=== PATIENT | male | born 1940 | race Caucasian/White ===

== ENCOUNTER 2018-05-09 15:50 | Inpatient (IN) ==
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
[2018-05-09 16:49] LABS: Baso # (Auto) 0.1 th/mm3 (0.0-0.2); Baso % (Auto) 0.7 % (0.0-2.0); Eos # (Auto) 0.6 th/mm3 (0.0-0.4); Eos % (Auto) 5.3 % (0.0-4.0); Hematocrit 50.6 % (39.0-51.0); Hemoglobin 17.7 gm/dL (13.0-17.0); Lymph # (Auto) 4.2 th/mm3 (1.0-4.8); Lymph % (Auto) 39.1 % (9.0-44.0); Mean Corpuscular HGB Conc 34.9 % (32.0-36.0); Mean Corpuscular Hemoglobin 32.9 pg (27.0-34.0); Mean Corpuscular Volume 94.3 fL (80.0-100.0); Mean Platelet Volume 9.1 fL (7.0-11.0); Mono # (Auto) 1.1 th/mm3 (0.0-0.9); Mono % (Auto) 10.7 % (0.0-8.0); Neut # (Auto) 4.7 th/mm3 (1.8-7.7); Neut % (Auto) 44.2 % (16.0-70.0); Platelet Count 153 th/mm3 (150-450); Red Blood Count 5.37 mil/mm3 (4.50-5.90); Red Cell Distribution Width 13.9 % (11.6-17.2); White Blood Count 10.7 th/mm3 (4.0-11.0)
[2018-05-09 17:00] LABS: INR 1.9 Ratio
[2018-05-09 17:06] LABS: Anion Gap 7 meq/L (5-15); Aspartate Aminotransferase 31 U/L (15-37); Blood Urea Nitrogen 16 mg/dL (7-18); Calcium 8.9 mg/dL (8.5-10.1); Carbon Dioxide 23.2 meq/L (21.0-32.0); Chloride 111 meq/L (98-107); Glomerular Filtration Rate 53 mL/min (>89); Glucose,Random 135 mg/dL (74-106); Magnesium 1.7 mg/dL (1.5-2.5); Sodium 141 meq/L (136-145)
[2018-05-09 17:17] LABS: Alanine Aminotransferase 44 U/L (12-78); Alkaline Phosphatase 85 U/L (45-117); Total Protein 7.9 g/dL (6.4-8.2)
[2018-05-09 17:35] LABS: Amphetamine Screen,Urine Neg (Neg); Barbiturate Screen,Urine Neg (Neg); Cannabinoid Screen,Urine Neg (Neg); Cocaine Screen,Urine Neg (Neg)
[2018-05-09 17:41] LABS: Opiate Screen,Urine Neg (Neg)
[2018-05-09] MEDS ORDERED: Gabapentin 300 MG Capsule PO ONE (19:59)
[2018-05-09] MEDS ORDERED: Lisinopril 20 MG Tablet PO ONE (19:59)
[2018-05-09] MEDS ORDERED: Acetaminophen 500 MG Tablet PO ONE (19:59)
[2018-05-09] MEDS ORDERED: Zolpidem Tartrate 5 MG Tablet PO ONE (19:59)
[2018-05-10] MEDS ORDERED: Haloperidol Inj 5 MG/ML Ampul IM ONE (10:18)
[2018-05-10] MEDS ORDERED: Haloperidol Inj 5 MG/ML Ampul ONE (10:20)
[2018-05-10] MEDS ORDERED: Aluminum/Magnesium/Simethacone Susp 30 ML UDC PO PRN (12:22)
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
[2018-05-10] MEDS: Gabapentin 300 MG Capsule PO SCH (17:51)
[2018-05-10] MEDS: QUEtiapine 25 MG Tablet PO SCH (21:03)
[2018-05-11 07:48] LABS: Calcium 8.8 mg/dL (8.5-10.1); Carbon Dioxide 26.4 meq/L (21.0-32.0); Potassium 3.7 meq/L (3.5-5.1)
[2018-05-11 07:53] LABS: Chol/HDL Ratio 3.89 Ratio; HDL Cholesterol 41.3 mg/dL (40.0-60.0)
[2018-05-11] MEDS ORDERED: Zolpidem Tartrate 5 MG Tablet PO SCH (09:00)
[2018-05-11] MEDS ORDERED: DONEPEZIL 10 MG PO SCH (09:00)
[2018-05-11] MEDS ORDERED: CITALOPRAM 40 MG PO SCH (09:00)
[2018-05-11] MEDS: Gabapentin 300 MG Capsule PO SCH ×3 (09:31→17:53)
[2018-05-11] MEDS: Lisinopril 5 MG Tablet PO SCH (09:32)
[2018-05-11] MEDS: Digoxin 125 MCG Tablet PO SCH (09:33)
[2018-05-11] MEDS ORDERED: Warfarin Consult Pharmacy OTHER PRN (09:47)
[2018-05-11 12:43] LABS: INR 1.5 Ratio; Prothrombin Time 15.6 sec (9.8-11.6)
[2018-05-11] MEDS ORDERED: Digoxin 250 MCG Tablet PO ONE ×2 (14:37→20:37)
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
[2018-05-11 16:25] LABS: Hemoglobin A1c 5.5 % (4.3-6.0)
[2018-05-11] MEDS: QUEtiapine 25 MG Tablet PO SCH (21:36)
[2018-05-12] MEDS: Digoxin 125 MCG Tablet PO SCH (08:07)
[2018-05-12] MEDS: Lisinopril 5 MG Tablet PO SCH (08:07)
[2018-05-12] MEDS: Gabapentin 300 MG Capsule PO SCH ×3 (08:07→17:32)
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
[2018-05-12 12:11] LABS: INR 1.7 Ratio; Prothrombin Time 16.8 sec (9.8-11.6)
[2018-05-12 12:25] LABS: Calcium 9.1 mg/dL (8.5-10.1); Carbon Dioxide 26.1 meq/L (21.0-32.0); Magnesium 2.2 mg/dL (1.5-2.5); Potassium 4.1 meq/L (3.5-5.1)
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
[2018-05-12] MEDS: QUEtiapine 25 MG Tablet PO SCH (20:37)
--- NOTE | 2018-05-13 06:39 | ECG ---
Date Performed: 05/11/2018 Time Performed: 14:01:55 PTAGE: 77 years EKG: ATRIAL FIBRILLATION WITH RAPID VENTRICULAR RESPONSE ABNORMAL RHYTHM ECG NO PREVIOUS TRACING DOCTOR: Griffin Oropeza Interpretating Date/Time 05/13/2018 06:38:45
[2018-05-13] MEDS: Gabapentin 300 MG Capsule PO SCH ×3 (08:15→17:22)
[2018-05-13] MEDS: Digoxin 125 MCG Tablet PO SCH (08:15)
[2018-05-13 08:21] LABS: INR 1.8 Ratio; Prothrombin Time 18.7 sec (9.8-11.6)
--- NOTE | 2018-05-13 09:12 | P.PNIM ---
Subjective Interval history: Follow-up visit for Alejandro alberto anticoagulated on Coumadin. Patient seen and examined sitting up in bed with nurse at bedside. Reports physician is trying different medications to assist with sleep at bedtime, received Seroquel overnight. Denies any fevers, chills, nausea, vomiting, diarrhea, cough, shortness of breath or chest pain. Discussed with patient discontinuing lisinopril as he is normotensive off of antihypertensives, verbalized understanding. Physical Exam Vital signs: Vital Signs 05/12/18 17:48 05/13/18 06:00 Temperature 97.5 F L 97.7 F Pulse Rate 66 61 Respiratory Rate 16 15 Blood Pressure 116/59 L Pulse Oximetry 93 L Intake & Output 05/12/18 05/13/18 05/13/18 18:59 06:59 18:59 Intake Total 1080 / 1080 Balance 1080 / 1080 Intake: Oral 1080 / 1080 Other: # Voids 2 Date of Last Bowel Movement 05/12/18 Narrative: GENERAL: Well-developed and well-nourished in no distress SKIN: Warm and dry. CARDIOVASCULAR: Irregularly irregular RESPIRATORY: No accessory muscle use. Clear to auscultation. Breath sounds equal bilaterally. GASTROINTESTINAL: Abdomen soft, non-tender, nondistended. MUSCULOSKELETAL: Extremities without clubbing, cyanosis, or edema. NEUROLOGICAL: Awake and alert. No obvious cranial nerve deficits. Motor grossly within normal limits. Normal speech. PSYCHIATRIC: Appropriate mood and affect; insight and judgment normal. Results Labs CBC & Chem 7: 05/09/18 16:26 05/12/18 11:35 Assessment and Plan (1) Dementia with behavioral disturbance: Code(s): F03.91 - Unspecified dementia with behavioral disturbance Status: Acute Plan 77-year-old male who has been placed under [place] act secondary to violent behavior. Patient has history of dementia and schizophrenia. Consultation has been requested by his attending to evaluate hypertension, hyperlipidemia and manage Coumadin. Schizophrenia-treatment plan per psychiatry Aubree -Continue anticoagulation with Coumadin, pharmacy consulted to assist with dosing. -INR 1.8, continue daily INR's - Loading dose of Digoxin 05/11, rate controlled, continue Digoxin 125cmg daily Hypertension, normotensive -Continue to hold lisinopril, BP stable, discussed discontinuing medication with patient. Hyperlipidemia-LDL 89, controlled Hx colon cancer s/p chemotherapy with side effects of neuropathy -Continue Gabapentin DVT prophylaxis-Coumadin Code Status: Full code Discussed Condition With: Patient and nurse Progress Note: Quality VTE Deep Vein Thrombosis/Pulmonary Embolism Present on Admission: No _ (1) Dementia with behavioral disturbance Qualifiers: Dementia type: Alzheimer's disease onset:
--- NOTE | 2018-05-13 14:16 | P.PNPSY ---
Subjective Chief Complaint: Involuntary hospitalization for violent behavior Remarks: Patient seen for follow-up, chart reviewed. Discussion with nursing staff reported that patient no behavioral disturbances, pleasant with staff, confused at times but isolative, showered, tolerating medications. Patient was found lying in hospital bed noted B, cooperative. Patient state he is feeling " pretty good" stating his mood has been good with adequate appetite, no perceptual disturbances. Patient states that his sleep was somewhat disturbed last evening but in general feels rested. Patient stated that he is looking forward to meeting together with provider and had in regards to discharge plan. Treatment team met with patient's and his daughter with which she expressed adamantly not feeling safe having patient return home despite being updated with patient's recent behavior here on the unit which patient has been cooperative pleasant compliant with medications with no aggressive behavior or agitation. She continues to refuse to consider patient returning home at this time states she does not feel safe due to his history of aggressive behavior and refused to meet with patient today. Discussion of patient being referred to an assisted living facility was reviewed with her and that it would require his income to pay for this referral which she was reluctant to. Review of Systems All other systems reviewed negative except as stated in HPI Mental Status Examination Appearance: Appropriate Consciousness: Alert Orientation: Person, Place, Date/Time Motor Activity: Normal gait Speech: Unremarkable Language: Adequate Fund of Knowledge: Inadequate Attention and Concentration: Easily distracted Memory: Impaired Mood: Appropriate Affect: Appropriate Thought Process & Associations: Intact, Linear, Other ([place]) Thought Content: Preoccupations (With meeting with ) Hallucination Type: None Delusion Type: None Suicidal Ideation: No Suicidal Plan: No Suicidal Intention: No Homicidal Ideation: No Homicidal Plan: No Homicidal Intention: No Insight: Fair Judgment: Impulsive Assessment and Plan - Assessment (1) Dementia with behavioral disturbance Code(s): F03.91 - Unspecified dementia with behavioral disturbance Status: Acute - Plan Plan: Patient this time noted to have good behavioral control, noted with stable mood no episodes of agitation or aggression, compliant with medication. We will continue current treatment. We will continue to monitor mood and behavior. At this time treatment team actively looking for assisted living facility where patient can be referred to us patient does not want patient return home and states she does not feel safe having him return there. Continue discharge planning. Justification for Continued Inpatient Stay: At risk of further decompensation at lower level care.
[2018-05-13] MEDS: QUEtiapine 25 MG Tablet PO SCH (21:10)
[2018-05-14] MEDS: Gabapentin 300 MG Capsule PO SCH ×3 (09:36→18:22)
[2018-05-14 09:43] LABS: INR 1.9 Ratio; Prothrombin Time 19.6 sec (9.8-11.6)
[2018-05-14] MEDS: Digoxin 125 MCG Tablet PO SCH (11:42)
--- NOTE | 2018-05-14 14:18 | P.PNPSY ---
Subjective Chief Complaint: Involuntary hospitalization for violent behavior Remarks: Patient seen for follow-up, chart reviewed. Discussion with nursing staff reported that patient no behavioral disturbances, compliant with medications. Patient found sitting in hospital bed noted B, cooperative. Patient state he worked with physical therapy today, reports sleeping "not bad" last night, adequate appetite and his mood is "pretty good". Patient does deny any SI, HI, AH or delusions. Patient continues to state he has no intention of hurting his and would like to be able to work things out with her and stated he is concerned about her his daughter as well. Discussion of meeting yesterday with his was reviewed with him and that his does not feel safe at this time to have patient return home which she acknowledge and plan to have patient stay be referred to an assisted living facility in the interim was reviewed with him which he agreed. Review of Systems All other systems reviewed negative except as stated in HPI Mental Status Examination Appearance: Appropriate Consciousness: Alert Orientation: Person, Place, Date/Time Motor Activity: Normal gait Speech: Unremarkable Language: Adequate Fund of Knowledge: Inadequate Attention and Concentration: Easily distracted Memory: Impaired Mood: Appropriate Affect: Appropriate Thought Process & Associations: Intact, Linear, Other ([place]) Thought Content: Preoccupations (Discharge) Hallucination Type: None Delusion Type: None Suicidal Ideation: No Suicidal Plan: No Suicidal Intention: No Homicidal Ideation: No Homicidal Plan: No Homicidal Intention: No Insight: Fair Judgment: Impulsive Assessment and Plan - Assessment (1) Dementia with behavioral disturbance Code(s): F03.91 - Unspecified dementia with behavioral disturbance Status: Acute - Plan Plan: Patient this time continues with good behavioral control no episodes of agitation or irritability, calm and pleasant with staff. Patient has been compliant with medications, tolerating well with no allergic reaction reported. We will continue current treatment. We will continue physical therapy work with patient. Continue to monitor with behavior. Discharge planning in progress. Justification for Continued Inpatient Stay: At risk of further decompensation at lower level care.
--- NOTE | 2018-05-14 15:32 | P.PNIM ---
Subjective Interval history: Follow-up visit for aubree anticoagulated on Coumadin. Patient is seen and examined in his room in no acute distress. He denies any SOB, cough , fevers, chills, N/V/D. Nurse does not report any acute events. Physical Exam Vital signs: Vital Signs 05/12/18 17:48 05/13/18 06:00 Temperature 97.5 F L 97.7 F Pulse Rate 66 61 Respiratory Rate 16 15 Blood Pressure 116/59 L Pulse Oximetry 93 L Intake & Output 05/12/18 05/13/18 05/13/18 18:59 06:59 18:59 Intake Total 1080 / 1080 Balance 1080 / 1080 Intake: Oral 1080 / 1080 Other: # Voids 2 Date of Last Bowel Movement 05/12/18 Narrative: GENERAL: Well-developed and well-nourished in no distress SKIN: Warm and dry. CARDIOVASCULAR: Irregularly irregular RESPIRATORY: No accessory muscle use. Clear to auscultation. Breath sounds equal bilaterally. GASTROINTESTINAL: Abdomen soft, non-tender, nondistended. MUSCULOSKELETAL: Extremities without clubbing, cyanosis, or edema. NEUROLOGICAL: Awake and alert. No obvious cranial nerve deficits. Motor grossly within normal limits. Normal speech. PSYCHIATRIC: Appropriate mood and affect; insight and judgment normal. Results Labs CBC & Chem 7: 05/09/18 16:26 05/12/18 11:35 Assessment and Plan (1) Dementia with behavioral disturbance: Code(s): F03.91 - Unspecified dementia with behavioral disturbance Status: Acute Plan 77-year-old male who has been placed under [place] act secondary to violent behavior. Patient has history of dementia and schizophrenia. Consultation has been requested by his attending to evaluate hypertension, hyperlipidemia and manage Coumadin. Schizophrenia-treatment plan per psychiatry Aubree -Continue anticoagulation with Coumadin, pharmacy consulted to assist with dosing. -INR 1.9, continue daily INR's - Loading dose of Digoxin 05/11, rate controlled, continue Digoxin 125cmg daily -Patient states he follows-up with his agile java developer for INR management. Hypertension, normotensive -Continue to hold lisinopril, BP stable, discussed discontinuing medication with patient. Hyperlipidemia-LDL 89, controlled Hx colon cancer s/p chemotherapy with side effects of neuropathy -Continue Gabapentin DVT prophylaxis-Coumadin Patient medically stable, can transfer to regular psych floor if appropriate. [facility] will sign off, please reconsult if needed. Pt seen by physician statistical methods professor today 05/14/2018 Code Status: Full code Discussed Condition With: Patient and nurse Progress Note: Quality VTE Deep Vein Thrombosis/Pulmonary Embolism Present on Admission: No _ (1) Dementia with behavioral disturbance Qualifiers: Alzheimer's disease onset: Dementia type:
[2018-05-14] MEDS: QUEtiapine 25 MG Tablet PO SCH (21:28)
[2018-05-15] MEDS: Digoxin 125 MCG Tablet PO SCH (08:02)
[2018-05-15] MEDS: Gabapentin 300 MG Capsule PO SCH ×3 (08:02→17:16)
[2018-05-15 08:13] LABS: INR 2.1 Ratio; Prothrombin Time 21.4 sec (9.8-11.6)
--- NOTE | 2018-05-15 14:14 | P.PNPSY ---
Subjective Chief Complaint: Involuntary hospitalization for violent behavior Remarks: Patient seen for follow-up, chart reviewed, patient discussed with nursing staff ; we reviewed the patient's mood, thoughts, and behaviors from overnight and this morning. Nursing describes the patient as having difficulty falling asleep but eventually got 6 hours of rest. His behavior is remained calm and cooperative and he was moved to the [address] this morning. The patient continues to deny auditory or visual hallucinations and denies any suicidal homicidal ideations. He made gains his belief that his and daughter of the ones with psychiatric illness but he is willing to go to an [facility] for at least 30 days in order to "work things out with my family". The patient requested restart of Benadryl for insomnia and he agrees to a trial of increase of the Seroquel as well. Mental Status Examination Appearance: Appropriate Consciousness: Alert Orientation: Person, Place, Date/Time Motor Activity: Normal gait Speech: Unremarkable Language: Adequate Fund of Knowledge: Inadequate Attention and Concentration: Easily distracted Memory: Impaired Mood: Appropriate Affect: Appropriate Thought Process & Associations: Intact, Linear, Other ([place]) Thought Content: Preoccupations (Discharge) Hallucination Type: None Delusion Type: None Suicidal Ideation: No Suicidal Plan: No Suicidal Intention: No Homicidal Ideation: No Homicidal Plan: No Homicidal Intention: No Insight: Fair Judgment: Impulsive Assessment and Plan - Assessment (1) Dementia with behavioral disturbance Code(s): F03.91 - Unspecified dementia with behavioral disturbance Status: Acute - Plan Plan: May 14, 2018: Patient this time continues with good behavioral control no episodes of agitation or irritability, calm and pleasant with staff. Patient has been compliant with medications, tolerating well with no allergic reaction reported. We will continue current treatment. We will continue physical therapy work with patient. Continue to monitor with behavior. Discharge planning in progress. May 15, 2018: Good response to treatment, as the patient has tolerated the current medication regimen and no negativistic behaviors on the unit. Patient notes history of paranoia and aggressive behaviors towards family will benefit from continued treatment with Seroquel current dose 25 mg is likely inadequate for long-term efficacy and the patient is complaining of insomnia therefore an increase of Seroquel to 50 mg will be recommended. Continue inpatient psychiatric treatment and stabilization. Continue current medications with an increase of Seroquel to 50 mg at bedtime and the start of Benadryl 50 mg at bedtime as needed for insomnia. Discharge planning in progress. Justification for Continued Inpatient Stay: Patient remains an elevated risk for self-harm by self neglect and risk to others by acting out on paranoid thoughts and will require further inpatient stabilization and preparation of a safe discharge plan. Moving patient to a less restrictive environment at this time may result in decompensation.
[2018-05-15] MEDS: QUEtiapine 25 MG Tablet PO SCH (20:48)
[2018-05-16] MEDS: Digoxin 125 MCG Tablet PO SCH (09:00)
[2018-05-16] MEDS: Gabapentin 300 MG Capsule PO SCH ×3 (09:00→17:38)
[2018-05-16] MEDS: Citalopram 20 MG Tablet PO SCH (09:01)
[2018-05-16 11:17] LABS: INR 2.5 Ratio; Prothrombin Time 24.8 sec (9.8-11.6)
--- NOTE | 2018-05-16 14:43 | P.PNPSY ---
Subjective Chief Complaint: Involuntary hospitalization for violent behavior Remarks: Patient remains an elevated risk for self-harm by self neglect and will require further inpatient stabilization and preparation of a safe discharge plan. Moving patient to a less restrictive environment at this time may result in decompensation. Nurse reports the patient slept 4 hours overnight and was unhappy with the Seroquel increase. He is also described as pleasantly confused. Patient was seen this morning sitting in the day room conversing with other patients. He reports feeling more rested today despite only getting 4 hours of sleep. He was asked about his displeasure with the increase of Seroquel and he now denies. He requests that the syrup will be continued at 50 mg at night with Benadryl available as needed if he were to wake up later. Patient reports "my problem is I just cannot turn my brain off." He denies any homicidal or suicidal ideations and denies any hallucinations. Mental Status Examination Appearance: Appropriate Consciousness: Alert Orientation: Person, Place, Date/Time Motor Activity: Normal gait Speech: Unremarkable Language: Adequate Fund of Knowledge: Inadequate Attention and Concentration: Easily distracted Memory: Impaired Mood: Appropriate Affect: Appropriate Thought Process & Associations: Intact, Linear, Other ([place]) Thought Content: Preoccupations (Discharge) Hallucination Type: None Delusion Type: None Suicidal Ideation: No Suicidal Plan: No Suicidal Intention: No Homicidal Ideation: No Homicidal Plan: No Homicidal Intention: No Insight: Fair Judgment: Impulsive Assessment and Plan - Assessment (1) Dementia with behavioral disturbance Code(s): F03.91 - Unspecified dementia with behavioral disturbance Status: Acute - Plan Plan: May 14, 2018: Patient this time continues with good behavioral control no episodes of agitation or irritability, calm and pleasant with staff. Patient has been compliant with medications, tolerating well with no allergic reaction reported. We will continue current treatment. We will continue physical therapy work with patient. Continue to monitor with behavior. Discharge planning in progress. May 15, 2018: Good response to treatment, as the patient has tolerated the current medication regimen and no negativistic behaviors on the unit. Patient notes history of paranoia and aggressive behaviors towards family will benefit from continued treatment with Seroquel current dose 25 mg is likely inadequate for long-term efficacy and the patient is complaining of insomnia therefore an increase of Seroquel to 50 mg will be recommended. Continue inpatient psychiatric treatment and stabilization. Continue current medications with an increase of Seroquel to 50 mg at bedtime and the start of Benadryl 25 mg at bedtime as needed for insomnia. Discharge planning in progress. May 16, 2018: Good response to treatment, the patient continues to behave appropriately within the milieu but his sleep remains in adequate and his complaints of racing thoughts are indications for continued treatment with Seroquel. He has definitely tolerated the increase dose to 50 and may eventually require an even higher dose to stabilize sleep mood and behaviors. Continue inpatient psychiatric treatment and stabilization. Continue current medications as prescribed for now. Discharge planning in progress. Justification for Continued Inpatient Stay: Patient remains an elevated risk for self-harm by self neglect and risk of harm to others by acting out on paranoia and therefore will require further inpatient stabilization and preparation of a safe discharge plan. Moving patient to a less restrictive environment at this time may result in decompensation.
[2018-05-16] MEDS: QUEtiapine 25 MG Tablet PO SCH (21:11)
[2018-05-17 05:55] VITALS: BP 130/76; PULSE 66; RESP 17; TEMP 96.8; O2SAT 96
[2018-05-17] MEDS: Gabapentin 300 MG Capsule PO SCH (08:54)
[2018-05-17] MEDS: Digoxin 125 MCG Tablet PO SCH (08:54)
[2018-05-17] MEDS: Citalopram 20 MG Tablet PO SCH (08:56)
[2018-05-17 10:41] LABS: INR 2.3 Ratio; Prothrombin Time 23.4 sec (9.8-11.6)
--- NOTE | 2018-05-17 15:13 | P.PNPSY ---
Subjective Chief Complaint: Involuntary hospitalization for violent behavior Remarks: Patient seen for follow up; chart reviewed. Patient found ambulating on the unit, discussion with nursing staff reported that patient with no behavioral disturbances over the weekend, calm, pleasant and cooperative. Patient states that weekend was uneventful, agreeable to discharge to rehab facility. He denies any depressive manic or psychotic symptoms. He agrees to continue with treatment and follow up appointments. He denies any perceptual disturbances, no SI or HI or delusions. Review of Systems All other systems reviewed negative except as stated in HPI Mental Status Examination Appearance: Appropriate Consciousness: Alert Orientation: Person, Place, Date/Time Motor Activity: Normal gait Speech: Unremarkable Language: Adequate Fund of Knowledge: Inadequate Attention and Concentration: Easily distracted Memory: Impaired Mood: Appropriate Affect: Appropriate Thought Process & Associations: Intact, Linear Thought Content: Appropriate Hallucination Type: None Delusion Type: None Suicidal Ideation: No Suicidal Plan: No Suicidal Intention: No Homicidal Ideation: No Homicidal Plan: No Homicidal Intention: No Insight: Fair Judgment: Impulsive Assessment and Plan - Assessment (1) Dementia with behavioral disturbance Code(s): F03.91 - Unspecified dementia with behavioral disturbance Status: Acute - Plan Plan: Patient with no behavioral disturbances, has been compliant with treatment. No noted mood or psychotic symptoms, currently with stable mood, has noted cognitive impairment but able to participate in ADLs. Patient will continue to have noted neurocognitive deficits due to dementia and does not have primary psychotic disorder such as schizophrenia. Patient will be discharged to rehab facility. Justification for Continued Inpatient Stay: Patient to be discharged to rehab facility.
--- NOTE | 2018-05-17 15:15 | P.DSPSY ---
Psychiatry Discharge Summary Inpatient Psychiatric care?: Yes Advance Directives: No Mental Health Advance Directive: No Health Care Proxy: No - Admission Admission Date: May 10, 2018 12:22 - Admission Diagnosis (1) Dementia with behavioral disturbance Code(s): F03.91 - Unspecified dementia with behavioral disturbance Brief History: Patient is a 37-year-old man, , domiciled with and daughter, retired, with a past psychiatric history of dementia, no prior psychiatric hospitalizations, no previous suicide attempts of interest behavior , no substance use history, with a past medical history significant for hypertension, hyperlipidemia, history of colon cancer status post chemo 2012 was brought in under [facility] from [facility] due to violent behavior toward which patient was admitted to the inpatient psychiatry for further evaluation and management. As per [facility] act patient had become violent with spouse, denying SI or HI, became upset because and daughter would not see a psychiatrist. stated patient increasingly more aggressive. Patient was found ambulating on the unit noted B, cooperative. Seen with medical student and nurse. Patient states that he had seen Dr. Berman 1 week ago which she was prescribed Seroquel and states he has been having fighting/arguing with his "over the same thing, trying to get to see a doctor". Patient states that he cannot compete with his that during recent argument prior to his admission and called the [employer] Guard[employer]er "things got out of control, try to get away she called the artillery meteorological man". When asked about concerns of the [place] act mentioning patient becoming violent or aggressive he states "I may have popped her 1" but does not engage in details. Patient states he has daily arguments with his , but at this time denies any SI, HI, AVH or delusions at this time. Patient is alert and oriented to person and place and date at this time. Discussion nursing staff reported the patient earlier today was a and O x2 and was unable to recall reasons for his hospitalization. Family psychiatric history: daughter with history of schizophrenia and lupus, no suicides in the family. Past psychiatric history: Previous psychiatric diagnosis of dementia, schizophrenia?, No prior psychiatric admissions, no previous suicide attempts, no self-injurious behavior, no history of abuse. Medication trials include quetiapine 25 mg p.o. at bedtime recently prescribed by Dr. Berman, Celexa 40 mg p.o. daily, Aricept 10 mg p.o. daily, gabapentin 600 mg p.o. 3 times daily. Past medical history: Hypertension, hyperlipidemia, colon cancer, status post chemo 2011. Allergies: NKDA Social history: Domiciled with and daughter, no legal history, has some college, retired, no background, no asked to firearms. Tobacco Use In Past 30 Days: No How Often Do You Have a Drink Containing Alcohol: Monthly or less Hospital Course: Patient is a 37-year-old man, , domiciled with and daughter, retired, with a past psychiatric history of dementia, no prior psychiatric hospitalizations, no previous suicide attempts of interest behavior , no substance use history, with a past medical history significant for hypertension, hyperlipidemia, history of colon cancer status post chemo 2011 was brought in under [facility] from [facility] due to violent behavior toward which patient was admitted to the inpatient psychiatry for further evaluation and management. Patient was admitted to a locked, inpatient psychiatric unit. Appropriate precautions were in place throughout patient's hospital stay. Patient was seen and examined on the unit by psychiatry. Psychotropic medications were adjusted. There was no evidence of any suicidality or homicidality on the inpatient unit. Patient's mood improved with the benefit of psychopharmacological treatment and had no behavioral disturbance since admission. Patient was noted to have maintained stable mood, noted to participate and engage in treatment and interact with staff adequately. Patient noted to be future oriented with plans to continue treatment and outpatient follow-up appointments for continuity of care. Patient also noted to have noted neurocognitive impairment secondary to dementia but evidence or any manic or psychotic disorder. Counselor has arranged discharge plan which patient will be discharge to a health and rehab facility. On the day of discharge: Patient seen and examined; chart reviewed. Case discussed with nurse and counselor. No behavioral issues overnight. On my examination today, the patient denies any suicidal homicidal ideation, intent or plan on direct questioning and contracts for safety. Patient denies any perceptional disturbances and no delusional material verbalized today. Patient denies any side effects from medication and has understanding of medication regimen and education. No physical complaints. Suicide and violence risk assessment on day of discharge both suggest lower imminent risk, and the patient's level of function is adequate for plan level of outpatient care. Patient has maximized benefit from this inpatient psychiatric hospital stay and will be discharged with discharge plan as arranged by counselor. Patient advised to return to psychiatric emergency room for any concerning psychiatric symptoms. Patient agrees with plan. - Discharge Discharge Date: 05/17/18 Discharge Disposition: Health and Rehab facility - Discharge Instructions Discharge Diet: Heart Healthy Diet, Coumadin (Warfarin) Diet Activities You Can Perform: Weight Bearing As Tolerat - Discharge Time > 30 minutes Mental Status Examination Appearance: Appropriate Consciousness: Alert Orientation: Person, Place, Date/Time Motor Activity: Normal gait Speech: Unremarkable Language: Adequate Fund of Knowledge: Inadequate Attention and Concentration: Easily distracted Memory: Impaired Mood: Appropriate Affect: Appropriate Thought Process & Associations: Intact, Linear Thought Content: Appropriate Hallucination Type: None Delusion Type: None Suicidal Ideation: No Suicidal Plan: No Suicidal Intention: No Homicidal Ideation: No Homicidal Plan: No Homicidal Intention: No Insight: Fair Judgment: Impulsive Discharge/Advance Care Plan - Results Vital Signs: Last Vital Signs Temp 96.8 F L 05/17/18 05:54 Pulse 66 05/17/18 05:54 Resp 17 05/17/18 05:54 BP 130/76 05/17/18 05:54 Pulse Ox 96 05/17/18 05:54 Lab Results: Abnormal Lab Results 05/17/18 09:51 PT 23.4 H INR 2.3 Laboratory Results Hemoglobin A1c 5.5 % (4.3-6.0) 05/11/18 05:58 Triglycerides 152 mg/dL (42-150) H 05/11/18 05:58 Cholesterol 161 mg/dL (120-200) 05/11/18 05:58 LDL Cholesterol, Calc 89 mg/dL (0-99) 05/11/18 05:58 HDL Cholesterol 41.3 mg/dL (40.0-60.0) 05/11/18 05:58 TSH 1.190 uIU/mL (0.358-3.740) 05/09/18 16:26 Summary of Procedures: none Pending Results: None - Medications Number of antipsychotic medications at discharge: 1 - Discharge Care Plan Goals to Promote Your Health: * To prevent worsening of your condition and complications * To maintain your health at the optimal level Directions to Meet Your Goals: Take your medications as prescribed Follow your dietary instruction Follow activity as directed Keep your appointments as scheduled Take your immunizations and boosters as scheduled If your symptoms worsen call your PCP, if no PCP go to Urgent Care Center or Emergency Room For 13/10 questions related to your inpatient stay or results of tests pending at discharge, please contact Dr. Alistair Brandt MD at Smoking is Dangerous to Your Health. Avoid second hand smoking
== END 2018-05-17 13:45 | DRG 57 ==
LOC: NEPD 15:50 → NEDA 05-10 12:22 → H260 05-10 15:06 → H4EA 05-11 21:46 → H260 05-15 09:43
PROVIDERS: ADMIT Student in an Organized Health Care Education/Training Program; ATTEND Student in an Organized Health Care Education/Training Program
DX: R73.9 Hyperglycemia, unspecified; Z85.038 Personal history of other malignant neoplasm of large intestine; Z92.21 Personal history of antineoplastic chemotherapy; N17.9 Acute kidney failure, unspecified; E78.5 Hyperlipidemia, unspecified; Z81.8 Family history of other mental and behavioral disorders; Z79.01 Long term (current) use of anticoagulants; I48.91 Unspecified atrial fibrillation; T45.1X5D Adverse effect of antineoplastic and immunosuppressive drugs, subsequent encounter; Z87.891 Personal history of nicotine dependence; G62.0 Drug-induced polyneuropathy; I10 Essential (primary) hypertension; G30.9 Alzheimer's disease, unspecified; F02.81 Dementia in other diseases classified elsewhere, unspecified severity, with behavioral disturbance
CPT/HCPCS: 80048; 80053; 80061; 80162; 80307; 83036; 83735; 84443; 85025; 85610; 90772; 90782; 90791; 93005; 96372; 97110; 97116; 97162; 99285; J1630; J2060